=== PATIENT | female | born 1975 | race Caucasian/White ===

== ENCOUNTER 2017-07-03 11:48 | Outpatient (CLI) | payer MEDICAID ==
--- NOTE | 2017-07-03 17:50 | XRAY Report ---
THREE VIEW LEFT ANKLE: 07/03/2017 CLINICAL INDICATION: Pain. AP, lateral, oblique views of the left ankle demonstrate no evidence of fracture or dislocation. No effusion is present. No foreign body is seen. IMPRESSION: NORMAL LEFT ANKLE. JOB #: [id number] EXT JOB #:[id number]
== END 2017-07-03 11:49 | disposition home or self-care (01) ==
LOC: DI.S 11:48
PROVIDERS: ATTEND Nurse Practitioner Family
DX: M25.572 Pain in left ankle and joints of left foot (principal)

== ENCOUNTER 2017-07-20 13:43 | Outpatient (CLI) | payer MEDICARE, MEDICAID ==
--- NOTE | 2017-07-22 09:50 | MRI Report ---
EXAM: LEFT ANKLE/HINDFOOT MRI WITHOUT CONTRAST EXAM DATE: 07/20/2017 03:12 PM. CLINICAL HISTORY: Left ankle joint pain COMPARISON: X-ray 07/03/2017. TECHNIQUE: Multiplanar, multisequence T1-weighted and fluid-sensitive sequences of the ankle/hindfoot without contrast. Other: None. FINDINGS: Bones: Mild patchy marrow edema in the posterior lateral talus. Alignment normal. No fracture seen. Articular Cartilage: Unremarkable. Ligaments: There is thickening and increased intrasubstance signal of the anterior talofibular ligame nt as well as adjacent edema. Mild fraying of the inferior margin of the ligament but no retraction. Calcaneofibular and posterior talofibular ligaments appear intact. The deep and superficial deltoid a nd spring ligaments are intact. Anterior Tendons: The tibialis anterior, extensor hallucis longus, and extensor digitorum longus tend ons are unremarkable. Medial Tendons: The tibialis posterior, flexor digitorum longus, and flexor hallucis longus tendons a re unremarkable. Lateral Tendons: The peroneus brevis and longus are unremarkable. Achilles Tendon: The Achilles tendon is unremarkable. Musculature: No edema or fatty atrophy. Other: Small ankle joint effusion. The contents of the sinus tarsi and tarsal tunnel are unremarkable . No plantar fasciitis. Mild lateral subcutaneous edema. IMPRESSION: 1. Grade 1 sprain anterior talofibular ligament. 2. Mild posterior lateral talus bone bruise and small ankle joint effusion. [facility] MUSCULOSKELETAL RADIOLOGY SECTION Referring Provider Line: [phone] SITE ID: [id number]
== END 2017-07-20 13:44 | disposition home or self-care (01) ==
LOC: DI 13:43
PROVIDERS: ATTEND Nurse Practitioner Family
DX: S93.492A Sprain of other ligament of left ankle, initial encounter (principal); M25.472 Effusion, left ankle

== ENCOUNTER 2017-12-20 09:14 | Outpatient (CLI) | payer MEDICARE, MEDICAID ==
--- NOTE | 2017-12-24 17:41 | Mammography Report ---
DIGITAL SCREENING MAMMOGRAM: 12/20/2017 CLINICAL INDICATION: A 42-year-old for screening. COMPARISON: 03/19/2017 TECHNIQUE: Routine CC and MLO projections as well as bilateral laterally exaggerated craniocaudal views were obtained of the breasts. FINDINGS: The breasts again demonstrate heterogeneously dense fibroglandular parenchyma bilaterally. Circumscribed nodule in the left lower outer quadrant has decreased in size, compatible with a waning cyst. No suspicious masses, clustered microcalcifications, or regions of architectural distortion are identified. IMPRESSION: BENIGN FINDINGS. RECOMMENDATION: Routine annual screening unless otherwise clinically indicated. BI-RADS category 2 benign findings. STANDARD QUALIFYING STATEMENTS 1. This examination was reviewed with the aid of Computed-Aided Detection (CAD). 2. A negative or benign imaging report should not delay biopsy if clinically suspicious findings are present. Consider surgical consultation if warranted. More than 5% of cancers are not identified by imaging. 3. Dense breasts may obscure an underlying neoplasm. TD: 12/24/2017 15:28
== END 2017-12-20 09:15 | disposition home or self-care (01) ==
LOC: DI.S 09:14
PROVIDERS: ATTEND Nurse Practitioner Family
DX: Z12.31 Encounter for screening mammogram for malignant neoplasm of breast (principal); Z80.3 Family history of malignant neoplasm of breast
CPT/HCPCS: 77067